=== PATIENT | male | born 1940 | race Two or more races ===

== ENCOUNTER 2019-01-03 16:00 | Observation (INO) | payer OTHER ==
[~2019-01-03] VITALS: Ht 165.1 cm; Wt 64.9 kg
[2019-01-03] MEDS ORDERED: DIPHTH/TETANUS/ACEL. PERTUSSIS IM ONE (16:20)
[2019-01-03] MEDS ORDERED: NS(*) 0.9% 1000 ML BAG 1,000 ML IV ONE (16:20)
[2019-01-03] MEDS ORDERED: TETRACAIN/EPI/LIDO GEL 3ML SYR TP ONE (16:25)
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
[2019-01-03 16:40] LABS: INR 0.95
[2019-01-03] MEDS ORDERED: IOPAMIDOL 76% 150 ML INFUS BTL 150 ML ONE (16:45)
[2019-01-03 16:51] LABS: PLATELET COUNT, AUTOMATED 214 K/uL (150-450)
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
--- NOTE | 2019-01-03 18:10 | RADIOLOGY IMAGING REPORT ---
FACILITY: PATIENT NAME: Albert Boo : 1940 MR: [id number] V: [id number] EXAM DATE: ORDERING PHYSICIAN: BONILLA HUTTON TECHNOLOGIST: Location: [facility] [place] Patient: Albert Boo : 1940 Visit/Account:[id number] Date of Sevice: 01/03/2019 HAND COMPLETE LEFT Indication: Left hand injury. Comparison: None available. Findings: 3 views of the left hand. No evidence of acute fracture, dislocation, or radiopaque foreign body. Osteoarthritis of the first carpometacarpal joint and a few interphalangeal joints. Impression: No acute osseous abnormality of the left hand. Report Dictated By: Jeffery Mendoza MD at 01/03/2019 6:05 PM Report E-Signed By: Jeffery Mendoza MD at 01/03/2019 6:06 PM WSN:[email or web address]
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
--- NOTE | 2019-01-03 18:18 | RADIOLOGY IMAGING REPORT ---
FACILITY: [facility] - [place] PATIENT NAME: Albert Boo : 1940 MR: [id number] V: [id number] EXAM DATE: ORDERING PHYSICIAN: BONILLA HUTTON TECHNOLOGIST: Location: [facility] Patient: Albert Boo : 1940 Visit/Account:[id number] Date of Sevice: 01/03/2019 CT OF THE BRAIN AND CERVICAL SPINE WITHOUT CONTRAST HISTORY: PROCEDURE: mm contiguous axial sections were performed through the brain AND mm axial images were obt ained through the cervical spine. Sagittal and coronal reformats were submitted. FINDINGS: BRAIN: Brain and intracranial structures: There is no mass lesion, hemorrhage or acute infarct. Orbits (included portions): Normal. Scalp: Normal. Skull: Normal. Paranasal sinuses and mastoid air cells (included portions): Mild ethmoid and maxillary mucosal thick ening. C-SPINE: Anterior cervical fusion hardware spans C5-C7. Correcting the chest abdomen and pelvis report, the v ertebral body fracture is at T3. There is no cervical spine fracture or dislocation. IMPRESSION: 1. No evidence of acute intracranial abnormality. 2. No cervical spine fracture. 3. Fracture involving T3, the anterior aspect only, better demonstrated on the CT of the chest abdom en and pelvis. One of the following dose optimization techniques was utilized in the performance of this exam: Autom ated exposure control; adjustment of the mA and/or kV according to the patient's size; or use of an i terative reconstruction technique. Specific details can be referenced in the facility's radiology C T exam operational policy. Report Dictated By: Servando Angelo MD at 01/03/2019 6:06 PM Report E-Signed By: Servando Angelo MD at 01/03/2019 6:15 PM WSN:[email or web address]
--- NOTE | 2019-01-03 18:19 | RADIOLOGY IMAGING REPORT ---
FACILITY: [facility] - [place] PATIENT NAME: Albert Boo : 1940 MR: [id number] V: [id number] EXAM DATE: ORDERING PHYSICIAN: BONILLA HUTTON TECHNOLOGIST: Location: [facility] [place] Patient: Albert Boo : 1940 Visit/Account:[id number] Date of Sevice: 01/03/2019 CT OF THE BRAIN AND CERVICAL SPINE WITHOUT CONTRAST HISTORY: PROCEDURE: mm contiguous axial sections were performed through the brain AND mm axial images were obt ained through the cervical spine. Sagittal and coronal reformats were submitted. FINDINGS: BRAIN: Brain and intracranial structures: There is no mass lesion, hemorrhage or acute infarct. Orbits (included portions): Normal. Scalp: Normal. Skull: Normal. Paranasal sinuses and mastoid air cells (included portions): Mild ethmoid and maxillary mucosal thick ening. C-SPINE: Anterior cervical fusion hardware spans C5-C7. Correcting the chest abdomen and pelvis report, the v ertebral body fracture is at T3. There is no cervical spine fracture or dislocation. IMPRESSION: 1. No evidence of acute intracranial abnormality. 2. No cervical spine fracture. 3. Fracture involving T3, the anterior aspect only, better demonstrated on the CT of the chest abdom en and pelvis. One of the following dose optimization techniques was utilized in the performance of this exam: Autom ated exposure control; adjustment of the mA and/or kV according to the patient's size; or use of an i terative reconstruction technique. Specific details can be referenced in the facility's radiology C T exam operational policy. Report Dictated By: Servando Angelo MD at 01/03/2019 6:06 PM Report E-Signed By: Servando Angelo MD at 01/03/2019 6:15 PM WSN:[email or web address]
[2019-01-03] MEDS ORDERED: FLUSH 10 ML SYR IVP PRN (18:30)
[2019-01-03] MEDS ORDERED: ACETAMINOPHEN 325 MG TAB PO PRN (18:30)
[2019-01-03] MEDS ORDERED: ONDANSETRON 4 MG/2 ML VIAL IVP PRN (18:30)
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
[2019-01-03 19:53] VITALS: BP 147/93
[2019-01-03] MEDS: DOCUSATE SODIUM 100 MG CAP PO SCH (20:29)
[2019-01-03 23:09] LABS: PLATELET COUNT, AUTOMATED 185 K/uL (150-450)
[2019-01-03 23:37] VITALS: BP 135/79
[2019-01-04 03:31] VITALS: BP 134/86
[2019-01-04 05:53] LABS: PLATELET COUNT, AUTOMATED 168 K/uL (150-450)
[2019-01-04 06:38] VITALS: BP 124/88
[2019-01-04] MEDS: DOCUSATE SODIUM 100 MG CAP PO SCH (08:25)
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
[2019-01-04 11:00] VITALS: Ht 165.1 cm; Wt 64.9 kg
== END 2019-01-04 09:39 | disposition home or self-care (01) ==
LOC: ER 17:46 → INTOOBSV 18:49 → MED 18:49
PROVIDERS: ADMIT Surgery; ATTEND Surgery
DX: S36.031A Moderate laceration of spleen, initial encounter (principal); S22.049A Unspecified fracture of fourth thoracic vertebra, initial encounter for closed fracture; Z85.028 Personal history of other malignant neoplasm of stomach
CPT/HCPCS: 36415; 70450; 71045; 71260; 72125; 72170; 73130; 74177; 82150; 83690; 85025; 85610; 85730; 90715; G0378; J7030; Q9967; 82040; 82247; 82310; 82374; 82435; 82565; 82947; 84075; 84132; 84155; 84295; 84450; 84460; 84520; 90471; 99284

== ENCOUNTER → 2019-01-03 | Outpatient (CLI) | payer OTHER ==
[2019-01-04 11:00] VITALS: BMI 23.8
== END ==
LOC: AMB 15:49
PROVIDERS: ATTEND Nurse Practitioner
DX: M79.642 Pain in left hand (principal); S61.412A Laceration without foreign body of left hand, initial encounter; V48.5XXA Car driver injured in noncollision transport accident in traffic accident, initial encounter; Y92.411 Interstate highway as the place of occurrence of the external cause
CPT/HCPCS: A0425; A0427